=== PATIENT | male | born 1950 | race Caucasian/White ===

== ENCOUNTER 2018-04-23 02:35 | Outpatient (CLI) | payer MEDICARE, SELFPAY ==
[2018-04-23 11:40] LABS: Abs Immature Grans 0.01 k/cumm (0.0-0.09); Absolute Basophil Count 0.02 k/cumm (0.0-0.2); Absolute Eosinophil Count 0.34 k/cumm (0.0-0.7); Absolute Lymphocyte Count 1.53 k/cumm (1.2-3.4); Absolute Monocyte Count 0.47 k/cumm (0.11-0.7); Absolute Neutrophil Count 2.99 k/cumm (1.2-6.7); Basophils % 0.4; Eosinophils % 6.3; HCT 41.4 % (40.0-50.0); HGB 14.3 g/dL (13.5-17.5); Immature Grans % 0.2; Lymphocytes % 28.5; Mean Corp. HGB Concentration 34.5 g/dL (32.0-36.0); Mean Corpuscular Hemoglobin 33.1 pg (27.0-33.0); Mean Corpuscular Volume 95.8 fL (80-95); Mean Platelet Volume 9.6 fL (8.0-11.0); Monocytes % 8.8; Neutrophils % 55.8; Platelet Count 166 x1000/uL (130-400); RBC 4.32 m/cumm (4.50-6.00); White Blood Cell Count 5.36 k/cumm (4.4-10.8)
[2018-04-23 13:07] LABS: ALT 41 U/L (12-78); AST 28 U/L (15-37); Alkaline Phosphatase 86 U/L (46-116); Anion Gap 7.8 mmol/L (3-11); BUN 19 mg/dL (7-18); Bilirubin, Total 0.8 mg/dL (0.2-1.0); CO2 28.2 mmol/L (21.0-32.0); Chloride 106 mmol/L (98-107); Glucose 88 mg/dL (70-100); Potassium 3.9 mmol/L (3.5-5.1); Sodium 142 mmol/L (136-145); TSH (W/Ref FT4) 3.08 uIU/mL (0.358-3.74); Total Protein 6.6 g/dL (6.4-8.2); Vitamin B12 1498 pg/mL (193-986)
[2018-04-24 13:03] LABS: PSA, Screening 1.3 ng/ml (0-4.5)
== END 2018-04-23 02:55 ==
PROVIDERS: PCP Family Medicine; Visit Provider Family Medicine
DX: R53.83 Other fatigue (principal); N13.8 Other obstructive and reflux uropathy; F32.9 Major depressive disorder, single episode, unspecified; Z12.5 Encounter for screening for malignant neoplasm of prostate; N40.1 Benign prostatic hyperplasia with lower urinary tract symptoms
CPT/HCPCS: 80053; 84153; 82607; 84443; 85025

== ENCOUNTER 2019-05-18 01:27 | Outpatient (CLI) | payer MEDICARE, SELFPAY ==
[2019-05-18 11:20] LABS: ALT 33 U/L (16-63); AST 32 U/L (15-37); Alkaline Phosphatase 92 U/L (46-116); BUN 17 mg/dL (7-18); Bilirubin, Total 0.7 mg/dL (0.2-1.0); CREATININE 1.05 mg/dL (0.70-1.30); Calcium 8.7 mg/dL (8.5-10.1); Chloride 106 mmol/L (98-107); Glucose 94 mg/dL (74-106); Potassium 4.3 mmol/L (3.5-5.1); Sodium 144 mmol/L (136-145); TSH (W/Ref FT4) 3.85 uIU/mL (0.36-3.74); Total Protein 6.5 g/dL (6.4-8.2)
[2019-05-18 11:38] LABS: HCT 42.8 % (40.0-50.0); Mean Corp. HGB Concentration 32.7 g/dL (32.0-36.0); Mean Corpuscular Hemoglobin 29.9 pg (27.0-33.0); Mean Corpuscular Volume 91.5 fL (80-95); Mean Platelet Volume 10.5 fL (8.0-11.0); Platelet Count 288 x1000/uL (130-400); RBC 4.68 m/cumm (4.50-6.00); RBC Distribution Width 13.2 % (11.8-14.1); White Blood Cell Count 7.63 k/cumm (4.4-10.8)
[2019-05-18 11:41] LABS: FREE T4 1.02 ng/dL (0.76-1.46)
== END 2019-05-18 01:47 ==
PROVIDERS: PCP Family Medicine; Visit Provider Family Medicine
DX: E03.9 Hypothyroidism, unspecified
CPT/HCPCS: 36415; 80053; 85027; 84439; 84443

== ENCOUNTER 2020-07-19 03:16 | Outpatient (CLI) | payer MEDICARE, SELFPAY ==
[2020-07-19 13:11] LABS: Calculated LDL 124 mg/dL (<100); Cholesterol 192 mg/dL (<200); HDL Cholesterol 57 mg/dL (40-60); TSH (W/Ref FT4) 3.06 uIU/mL (0.36-3.74); Triglyceride 59 mg/dL (<150)
== END 2020-07-19 03:17 | disposition home or self-care (01) ==
LOC: LOS 03:16
PROVIDERS: PCP Family Medicine; Visit Provider Nurse Practitioner Family
DX: E03.9 Hypothyroidism, unspecified (principal); F32.9 Major depressive disorder, single episode, unspecified
CPT/HCPCS: 36415; 80061; 84443

== ENCOUNTER 2022-07-01 03:11 | Outpatient (CLI) | payer MEDICARE, SELFPAY ==
[2022-07-01 14:24] LABS: Hemoglobin A1C 5.7 % (<5.7)
== END 2022-07-01 03:12 | disposition home or self-care (01) ==
LOC: LOS 03:12
PROVIDERS: PCP Nurse Practitioner Family; Visit Provider Nurse Practitioner Family
DX: F32.9 Major depressive disorder, single episode, unspecified (principal); E03.9 Hypothyroidism, unspecified; Z79.899 Other long term (current) drug therapy; Z13.1 Encounter for screening for diabetes mellitus
CPT/HCPCS: 36415; 83036

== ENCOUNTER 2023-08-19 05:50 | Outpatient (CLI) | payer MEDICARE, SELFPAY ==
[2023-08-19 12:42] LABS: Anion Gap 4.5 mmol/L (3-11); BUN 13 mg/dL (7-18); CO2 28.5 mmol/L (21.0-32.0); Calcium 9.4 mg/dL (8.5-10.1); Calculated LDL 117 mg/dL (<100); Chloride 105 mmol/L (98-107); Cholesterol 195 mg/dL (<200); Estimated GFR 80.47 (mL/min/1.73m2); Glucose 103 mg/dL (74-106); HDL Cholesterol 69 mg/dL (40-60); Potassium 3.8 mmol/L (3.5-5.1); Sodium 138 mmol/L (136-145); TSH (W/Ref FT4) 3.31 uIU/mL (0.36-3.74); Triglyceride 49 mg/dL (<150)
[2023-08-19 18:20] LABS: PSA, Screening 1.6 ng/mL (<=6.5)
== END 2023-08-19 05:51 | disposition home or self-care (01) ==
LOC: LOS 05:50
PROVIDERS: PCP Nurse Practitioner Family; Visit Provider Nurse Practitioner Family
DX: Z13.6 Encounter for screening for cardiovascular disorders (principal); Z13.1 Encounter for screening for diabetes mellitus; E02 Subclinical iodine-deficiency hypothyroidism; Z12.5 Encounter for screening for malignant neoplasm of prostate
CPT/HCPCS: 36415; 80048; 80061; 84153; 84443

== ENCOUNTER 2024-08-10 03:44 | Outpatient (CLI) | payer MEDICARE, SELFPAY ==
[2024-08-10 12:24] LABS: Abs Immature Grans 0.01 10^3/uL (0.0-0.06); Absolute Basophil Count 0.03 10^3/uL (0.0-0.2); Absolute Eosinophil Count 0.43 10^3/uL (0.0-0.7); Absolute Monocyte Count 0.51 10^3/uL (0.1-0.8); Absolute Neutrophil Count 3.22 10^3/uL (1.2-6.7); Basophils % 0.5 %; Eosinophils % 7.7 %; HCT 43.9 % (40.0-50.0); HGB 14.9 g/dL (13.5-17.5); Immature Grans % 0.2 %; MCH 32.9 pg (27.0-33.0); MCHC 33.9 % (32.0-36.0); MCV 97 fL (80-95); MPV 9.6 fL (8.0-11.0); Monocytes % 9.1 %; Neutrophils % 57.5 %; Platelet Count 214 10^3/uL (130-400); RBC 4.53 10^6/uL (4.36-5.78); RDW 12.9 % (11.8-14.1); RDW-SD 46.3 fL
[2024-08-10 12:50] LABS: Hemoglobin A1C 5.6 % (<5.7)
== END 2024-08-10 03:45 | disposition home or self-care (01) ==
LOC: LOS 03:44
PROVIDERS: PCP Nurse Practitioner Family; Visit Provider Nurse Practitioner Family
DX: R73.03 Prediabetes (principal); F32.9 Major depressive disorder, single episode, unspecified
CPT/HCPCS: 36415; 83036; 85025

== ENCOUNTER 2024-09-16 03:12 | Outpatient (CLI) | payer MEDICARE, SELFPAY ==
[2024-09-16 12:49] LABS: Anion Gap 10.8 mmol/L (3-11); BUN 19 mg/dL (7-18); CO2 28.2 mmol/L (21.0-32.0); CREATININE 0.9 mg/dL (0.70-1.30); Calcium 9.3 mg/dL (8.5-10.1); Calculated LDL 123 mg/dL (<100); Chloride 102 mmol/L (98-107); Cholesterol 202 mg/dL (<200); Estimated GFR 90.74 (mL/min/1.73m2); Glucose 90 mg/dL (74-106); HDL Cholesterol 69 mg/dL (>or=40); Sodium 141 mmol/L (136-145); TSH (W/Ref FT4) 2.72 uIU/mL (0.36-3.74); Triglyceride 54 mg/dL (<150)
[2024-09-16 18:35] LABS: PSA, Screening 1.8 ng/mL (<=6.5)
== END 2024-09-16 03:13 | disposition home or self-care (01) ==
LOC: LOS 03:13
PROVIDERS: PCP Nurse Practitioner Family; Visit Provider Nurse Practitioner Family
DX: E02 Subclinical iodine-deficiency hypothyroidism (principal); Z13.6 Encounter for screening for cardiovascular disorders; Z13.1 Encounter for screening for diabetes mellitus; Z12.5 Encounter for screening for malignant neoplasm of prostate
CPT/HCPCS: 36415; 80048; 80061; 84153; 84443

== ENCOUNTER 2025-01-08 09:52 | Emergency (ER) | payer MEDICARE, SELFPAY ==
[2025-01-08 09:58] VITALS: BP 151/83; PULSE 79; RESP 18; TEMP 36.3; O2SAT 95
--- NOTE | 2025-01-08 10:28 | W.ED.GENAD ---
Discharge Plan Disposition Patient Disposition: Home Condition: Stable Discharge Details Clinical Impression: Subjective visual disturbance of right eye Primary Care Provider: Jose Juan Alexander ED Provider: Rocio Silva Home Meds and New Rx's Prescriptions: Continued cyclobenzaprine 10 mg tablet 10 mg PO BID PRN (Reason: muscle spasm) Qty: 42 0RF folic acid 400 mcg tablet 0.4 mg PO DAILY glycopyrrolate 2 mg tablet 2 mg PO TID PRN (Reason: secretions) Qty: 270 3RF sertraline 50 mg tablet 50 mg PO DAILY Qty: 90 0RF ibuprofen 200 MG tablet 400 mg PO daily prn glucosamine sulfate 2KCl 1,000 MG tablet 1 tab PO DAILY Vitamins B Complex 1 EACH tablet 1 tab PO DAILY lamotrigine [Lamictal] 200 mg tablet 200 mg PO BID Qty: 180 3RF buspirone 15 mg tablet 15 mg PO BID Qty: 180 3RF Discharge Instructions Instructions: Eyestrain, Floaters in the Eye Additional Instructions: No evidence for retinal detachment noted on the bedside ultrasound today, no abnormality noted in the globe of your eye. Your intraocular pressure was within normal limits at 8.9. At this time I do feel it is safe for you to follow-up with [facility] you may call them on Friday morning to make an appointment within the next 3 to 5 days. Please return to the ER if you have any worsening headache, pressure behind your eye, loss of vision such as a curtain falling, weakness dizziness, or any concerns. Follow up with primary care provider in 3-5 days. Return to ED sooner if any worsening or concerns. Thank you for allowing us to care for you today. Referrals: [facility] [Outside] - 5 days Referral Note: Call for an appointment, ER follow-up Clinical Impression: Subjective visual disturbance of right eye Jose Juan Alexander, [employer] [Primary Care Provider, Medicine] Discharge Data Discharge Date/Time-TO BE ENTERED AT DEPARTURE: 01/08/25 11:31 HPI General Mode of arrival: ambulatory. Date/Time Provider Initiated Documentation: 01/08/25 09:52. Limitations to Documentation: no limitations. Information obtained by: patient, RN notes reviewed and old records reviewed. HPI Narrative: 74-year-old male presents to the ER with a chief complaint of visual disturbances to his right eye which began around 7 PM last night. He describes floaters and swirling vision. Denies any eye pain, denies any headache recent head injuries weakness dizziness or feeling unsteady on his feet. He states that he last saw his eye doctor at [facility] approximately 4 months ago. He does wear glasses. Denies any other associated symptoms. 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 Related Data Home Medications ?Medication ?Instructions ?Recorded ?Confirmed glucosamine sulfate 2KCl 1,000 mg 1 tab PO DAILY 07/05/12 01/08/25 tablet ibuprofen 200 mg tablet 400 mg PO daily prn 07/05/12 01/08/25 vit B [id number]-iron fum-vit E 1 tab PO DAILY 07/05/12 01/08/25 500 mg-400 mcg-18 mg iron tablet (Vitamins B Complex) folic acid 400 mcg tablet 0.4 mg PO DAILY 09/02/18 01/08/25 cyclobenzaprine 10 mg tablet 10 mg PO BID PRN muscle spasm #42 07/18/21 01/08/25 tabs sertraline 50 mg tablet 50 mg PO DAILY #90 tabs 11/06/23 01/08/25 lamotrigine 200 mg tablet 200 mg PO BID #180 tabs 03/22/24 01/08/25 (Lamictal) glycopyrrolate 2 mg tablet 2 mg PO TID PRN secretions #270 08/23/24 01/08/25 tab-caps buspirone 15 mg tablet 15 mg PO BID #180 tab-caps 11/17/24 01/08/25 Previous Rx's ?Medication ?Instructions ?Recorded cyclobenzaprine 10 mg tablet 10 mg PO BID PRN muscle spasm #42 07/18/21 tabs sertraline 50 mg tablet 50 mg PO DAILY #90 tabs 11/06/23 lamotrigine 200 mg tablet 200 mg PO BID #180 tabs 03/22/24 (Lamictal) glycopyrrolate 2 mg tablet 2 mg PO TID PRN secretions #270 08/23/24 tab-caps buspirone 15 mg tablet 15 mg PO BID #180 tab-caps 11/17/24 Allergies Allergy/AdvReac Type Severity Reaction Status Date / Time oxycodone Allergy Severe Hives Verified 01/08/25 10:17 General Stated Complaint: EyeProblem RIVERA: 2 Review of Systems All systems reviewed & are unremarkable except as noted in HPI and below Constitutional Constitutional: Denies headache(s) and Denies weakness Eyes Eyes: Reports as per HPI, Denies blurry vision, Denies exophthalmos, Denies diplopia, Denies eye discharge, Denies dry eyes, Reports floaters, Denies irritation, Denies itchy eyes, Denies loss of vision, Reports other visual disturbances, Denies eye pain, Reports requires corrective lenses and Denies seeing flashes ENT Ears, Nose, Mouth, and Throat: Denies vertigo, Denies dizziness, Denies headache(s) and Denies disequilibrium Musculoskeletal Musculoskeletal: Denies numbness Neurologic Neurologic: Denies confusion, Denies vertigo, Denies dizziness, Denies headache(s), Denies localized weakness, Denies loss of vision, Denies memory loss, Denies numbness, Reports other visual disturbances, Denies disequilibrium and Denies weakness Psychiatric Psychiatric: Denies confusion and Denies memory loss Allergic/Immunologic Allergic/Immunologic: Denies itchy eyes Exam Eyes General: appearance normal, both eyes and all related structures Alignment and Position: alignment normal and position normal Periorbital: periorbital findings normal Eyelids: eyelids normal Conjunctivae: conjunctivae normal Cornea: corneas normal Pupils: PERRL and normal by confrontation EOM: EOM intact bilaterally Direct ophthalmoscopy: normal light reflex and anterior chamber normal Course Vital Signs Vital signs: Vital Signs Temperature 36.3 C L 01/08/25 09:58 Pulse 79 01/08/25 09:58 Respiratory Rate 18 01/08/25 09:58 Blood Pressure 151/83 H 01/08/25 09:58 Pulse Oximetry 95 01/08/25 09:58 Temperature 36.3 C L 01/08/25 09:58 Temperature Source Tympanic 01/08/25 09:58 Pulse 79 01/08/25 09:58 Respiratory Rate 18 01/08/25 09:58 Blood Pressure 151/83 H 01/08/25 09:58 Blood Pressure Position Sitting 01/08/25 09:58 Pulse Oximetry 95 01/08/25 09:58 Oxygen Delivery Method Room Air 01/08/25 09:58 Oxygen Flow Rate 0 01/08/25 09:58 Pain Level 0 01/08/25 09:58 Medical Decision Making 74-year-old male presents to the ER with a chief complaint of visual disturbances to his right eye which began around 7 PM last night. He describes floaters and swirling vision. Denies any eye pain, denies any headache recent head injuries weakness dizziness or feeling unsteady on his feet. He states that he last saw his eye doctor at [facility] approximately 4 months ago. He does wear glasses. Denies any other associated symptoms. 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 Red reflex noted, Will use POCUS to aid in ruling out retinal detachment, Tonometer used to intra ocular pressure, Bedside US to view orbit performed, no abnormality noted in vitreous humor, no evidence of retinal detachment, no evidence of lens detachment, IOP of Right eye WNL at 8.9. Discussed strict return instructions with patient and follow-up care to call [facility] on Friday morning to get a follow-up appointment. Patient verbalized understanding. Instructed to return if any headache, pressure behind his eye, worsening vision, loss of vision or concerns. He verbalized understanding. He is ambulatory without assistance here in the department. This text was generated using [email or web address] dictation system, please disregard any oddities of phrase or misspellings. 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 Low Pre-diabetes (Acute) Anxiety (Chronic) High blood pressure (Chronic) Plantar fasciitis of right foot (Acute) Bilateral impacted cerumen (Acute) Back pain (Acute) Hyperhidrosis (Acute 03/24/14) Hypothyroidism (Acute 03/22/13) Depressive disorder (Acute) bipolar Surgical History reattachment of finger (~09/1977) index finger Rotator Cuff Repair (~10/2005) RIGHT Repair, ACL (~12/2012) RIGHT Open Carpal Tunnel release (~07/2007) Family History Mother , AGE 85 Diabetes Bipolar disorder Heart disease Father , AGE 61 Heart disease Myocardial infarction Sister Ovarian cancer Son No problems noted. Son No problems noted. Social History Smoking/Tobacco Use Status: Former Tobacco Use Quit Date: 04/21/71 Pack-years: 5 Tobacco: How many years used: 5 Second Hand Exposure: Yes Smoking risk assessment performed?: Yes Alcohol Intake: current Alcohol Intake frequency: holidays/special occasions only Alcohol type: beer Drug use: Occasionally Substance use type: marijuana Caregiver/Support person: No Household members: spouse Housing: house Communication Needs: None Do you need help understanding health information?: Never Pets and animals: Yes Pets and animals: cat(s) Sexually active: No Do you think of yourself as: straight/heterosexual Current gender identity: male What is your relationship status?: How often do you talk on the phone with friends or family?: three or more times per week How often do you get together with friends or relatives?: twice per week How often do you attend baptist or caodaism services?: decline to answer Do you belong to any clubs or organized social groups?: no Panel score (0-1 are the most socially isolated patients): 2 What type of physical activity do you participate in: other Duration: 15-30 minutes/day Frequency: daily Rhona/Confucianism: None Special rhona needs: No Seatbelt use: always Helmet use: Yes Helmet use: always Drive intox or ride w/intox driver lifter of sanitation truck: No Do you feel safe at home: Yes Do you feel safe in your relationship?: Yes
[2025-01-08 11:48] VITALS: BP 139/91; PULSE 75; RESP 14; O2SAT 97
== END 2025-01-08 11:31 | disposition home or self-care (01) ==
PROVIDERS: Emergency Provider Registered Nurse Emergency; PCP Nurse Practitioner Family
DX: H53.19 Other subjective visual disturbances (principal)
CPT/HCPCS: 99284

== ENCOUNTER → 2025-03-10 10:12 | Outpatient (CLI) | payer MEDICARE, SELFPAY ==
--- NOTE | 2025-03-10 10:00 | DI.RAD_ITS ---
Exam(s) XR SHOULDER RT COMPLETE 2+V EXAM: XR SHOULDER RT COMPLETE 2+V CLINICAL HISTORY: shoulder pain RT, fall, M25.511. TECHNIQUE: 2D digital imaging was performed. Five views. COMPARISON: No exams were available for comparison FINDINGS: BONES: No acute fracture is present. No bony destructive lesion is seen. Mild spurring at the greater and lesser tuberosities. JOINTS: No dislocation present. Mild spurring at the AC joint. Glenohumeral joint space is maintained. There is minimal spurring at the glenoid. SOFT TISSUE: Normal. IMPRESSION: Mild degenerative changes. No acute abnormality DATA REPOSITORY: RADIATION DOSE DELIVERED:
== END ==
PROVIDERS: PCP Nurse Practitioner Family; Visit Provider Physician Assistant
DX: M25.511 Pain in right shoulder (principal); M25.462 Effusion, left knee
CPT/HCPCS: 73030

== ENCOUNTER → 2025-04-13 00:02 | Outpatient (CLI) | payer MEDICARE, SELFPAY ==
--- NOTE | 2025-04-13 | DI.MRI_ITS ---
Exam(s) MR UPPER JOINT RT WO EXAM: MR UPPER JOINT RT WO CLINICAL HISTORY: M75.41,M75.121,S43.101A Subacromial impingment RT shoulder, RCT or rupture TECHNIQUE: Multiplanar multisequence MRI of the shoulder was performed. COMPARISON: CR XR SHOULDER RT COMPLETE 2+V from 03/10/2025 FINDINGS: MARROW:There is no evidence of fracture, Hill-Sachs deformity, nor ominous osseous lesions. GLENOHUMERAL JOINT: There is a small-moderate size glenohumeral joint effusion with synovial thickening evident. This extends into the subacromial recess.. There is no prominent articular cartilage loss and there are no degenerative subarticular cysts. However, there is a small osteophyte on the inferior articular surface of the humeral head. ROTATOR CUFF MECHANISM: AC JOINT/ACROMIUM: There is slight widening of the AC joint which may be postsurgical. There is fluid in the subacromial bursa space. There is no evidence of os acromiale. Supraspinatus: There is a full-thickness tear of the supraspinatus with retraction of the musculotendinous junction to the osseous glenoid level. Infraspinatus: There is also full-thickness tear of the infraspinatus, also with significant retraction. Teres Minor: Intact. No evidence of tear nor muscle atrophy. Subscapularis/anterior cuff: Intact. No abnormal signal at the level of the multipennate insertional fibers. No significant tear nor atrophy. BICEPS TENDON: Exhibits normal position within the intertubercular groove. No evidence of tear. No tenosynovitis. LABRUM: No obvious labral tear identified. No evidence of paralabral cyst. IMPRESSION: 1. There are prominent full-thickness tears of both the supraspinatus and infraspinatus with prominent retraction of the musculotendinous junctions to the level of the osseous glenoid, this leaving a large bare area over the superior aspect of the rim row head which is in communication with the subacromial space. 2. There is a moderate size joint effusion and multilevel synovial thickening noted 3. There are mild degenerative changes in the glenohumeral joint but no evidence of obvious labral tears. Also no tear nor displacement of the biceps tendon. DATA REPOSITORY:
== END ==
LOC: DI 00:03
PROVIDERS: PCP Nurse Practitioner Family; Visit Provider Specialist
DX: S43.101A Unspecified dislocation of right acromioclavicular joint, initial encounter (principal); M75.121 Complete rotator cuff tear or rupture of right shoulder, not specified as traumatic; M75.41 Impingement syndrome of right shoulder
CPT/HCPCS: 73221